=== PATIENT | male | born 1995 | race African-American/Black ===

== ENCOUNTER 2016-12-07 05:01 | Emergency (ER) | payer OTHER | END 2016-12-07 06:05 | disposition home or self-care (01) | LOC: FER 05:01 | DX: S61.224A Laceration with foreign body of right ring finger without damage to nail, initial encounter (principal); L08.9 Local infection of the skin and subcutaneous tissue, unspecified; F17.200 Nicotine dependence, unspecified, uncomplicated; Z23 Encounter for immunization; W22.01XA Walked into wall, initial encounter; Y92.009 Unspecified place in unspecified non-institutional (private) residence as the place of occurrence of the external cause | CPT/HCPCS: 73130; 90471; 90715 ==

== ENCOUNTER 2016-12-16 18:23 | Emergency (ER) | payer OTHER | END 2016-12-16 19:24 | disposition home or self-care (01) | LOC: FER 18:23 | DX: Z48.02 Encounter for removal of sutures (principal) | CPT/HCPCS: 99281 ==

== ENCOUNTER 2021-11-26 12:52 | Emergency (ER) | payer OTHER ==
[~2021-11-26 12:52] MED LIST: AMOXICILLIN500 MG PO; ZOFRAN8 MG PO
[2021-11-26 14:00] LABS: EOSINOPHIL 1.3 % (0-5); LYMPHOCYTE 21.1 % (15-48); MCH 29.8 pg (25.0-31.0); MCV 87.6 fL (78.0-100.0); MONOCYTE 7.6 % (0-12); MPV 10.5 fL (6.0-9.5); NEUTROPHIL 68.8 % (41-80); NRBC 0; PLT 330 K/uL (150-400); RBC 5.71 M/uL (4.70-6.00); RDW 13.2 % (11.5-14.0); WBC 8.9 K/uL (4.0-10.5)
[2021-11-26 14:07] LABS: BILIRUBIN NEGATIVE (NEGATIVE); BLOOD NEGATIVE Ery/uL (NEGATIVE); CLARITY CLEAR (CLEAR); COLOR YELLOW (YELLOW); GLUCOSE (U) NORMAL (NORMAL); LEUKOCYTES NEGATIVE Leu/uL (NEGATIVE); NITRITE NEGATIVE (NEGATIVE); PROTEIN NEGATIVE (NEGATIVE)
[2021-11-26 14:11] LABS: AMPHETAMINES NEGATIVE (NEGATIVE); BARBITURATES NEGATIVE (NEGATIVE); ECSTASY (MDMA) NEGATIVE (NEGATIVE); MARIJUANA (THC) NEGATIVE (NEGATIVE); METHADONE NEGATIVE (NEGATIVE); OPIATES NEGATIVE (NEGATIVE); OXYCODONE NEGATIVE (NEGATIVE)
[2021-11-26 14:37] LABS: CORONAVIRUS 2019 SARS-COV-2 NEGATIVE (NEGATIVE); CREATININE 0.88 mg/dL (0.67-1.17); INFLUENZA A NAA NEGATIVE (NEGATIVE); POTASSIUM 3.9 mmol/L (3.5-5.1)
== END 2021-11-26 17:30 | disposition home or self-care (01) ==
LOC: FER 12:52
PROVIDERS: Nurse Practitioner Family
DX: R07.89 Other chest pain (principal); F15.90 Other stimulant use, unspecified, uncomplicated; F14.90 Cocaine use, unspecified, uncomplicated; F13.10 Sedative, hypnotic or anxiolytic abuse, uncomplicated; Z20.822 Contact with and (suspected) exposure to COVID-19
CPT/HCPCS: 36415; 71045; 80048; 80305; 81003; 84484; 85025; 85379; 93005; J7030; U0002